=== PATIENT | female | born 1945 | race Caucasian/White ===

== ENCOUNTER → 2017-03-24 | Outpatient (CLI) | payer MEDICARE ==
--- NOTE | 2017-03-24 17:43 | MAM ---
History: Well woman exam. Date of exam: 03/24/2017 Services provided: Bilateral full field digital screening mammography. CAD, the images were reviewed with R2 computer aided detection. FINDINGS: Glandular tissue is scattered glandular contour. Comparison with 2014 study. Mammographically benign bilateral subglandular implants with extensive capsular calcification. No dominant mass, architectural distortion or clustered microcalcification. Stable retroareolar left breast nodule. IMPRESSION: Benign exam Recommendation: Routine annual mammography BIRAD CATEGORY: 2 BENIGN Electronically signed by: Mimi Diggs MD 03/24/2017 5:42 PM CDT
== END ==
LOC: MAMMO 09:58
PROVIDERS: ATTEND Family Medicine
DX: Z12.31 Encounter for screening mammogram for malignant neoplasm of breast (principal)

== ENCOUNTER → 2017-10-02 | Outpatient (CLI) | payer MEDICARE ==
--- NOTE | 2017-10-05 09:21 | MRI ---
EXAM DESCRIPTION: Lumbar Spine w/o Contrast CLINICAL HISTORY: 72 years, Female, RADICULOPATHY , right leg pain COMPARISON: FINDINGS: Sagittal and axial sequences. Bone marrow is normal signal characteristics except for degenerative-type changes. Conus terminates at L1. Mild bulge on sagittal sequences at T12-L1. Moderate right lumbar curvature centered mid and lower lumbar spine related to degenerative change. Narrowing L1-2 with bulging disc osteophyte asymmetric to the right. Facet degenerative change with narrowing right exit foramen and lateral recess. At L2-3 narrowing with about 2 mm of retrolisthesis. Bulging disc osteophyte asymmetric to the right. Moderate facet degenerative change with slight impingement left lateral recess. L3-4 diffuse bulging disc with narrowing. Mild bilateral foraminal narrowing. Facet degenerative change. Left lateral recess encroachment. L4-5 narrowing with bulging disc asymmetric to the right. Facet degenerative change. Impingement on the right lateral recess and right-sided thecal sac. Slight right foraminal narrowing. . L5-S1 narrowing with bulging disc osteophyte asymmetric to the right. Impingement on the exiting right L5 root. IMPRESSION: 1. Moderately severe disc disease throughout the lumbar spine 2. Changes most advanced at L4-5 and L5-S1. At L4-5 bulging disc osteophyte and facet degenerative change. Impingement on right lateral recess, right-sided thecal sac and right exit foramen. At L5-S1 bulging disc osteophyte asymmetric to the right with impingement on the exiting right L5. 3. Other moderately severe disc changes upper lumbar spine, as discussed above Electronically signed by: Dmitriy Sandoval MD 10/05/2017 9:20 AM [facility]
== END | disposition home or self-care (01) ==
LOC: MRI 13:03
PROVIDERS: ATTEND Family Medicine
DX: M54.16 Radiculopathy, lumbar region (principal)

== ENCOUNTER → 2018-06-15 | Outpatient (CLI) | payer MEDICARE | LOC: NC 09:01 | PROVIDERS: ATTEND Family Medicine | DX: M06.9 Rheumatoid arthritis, unspecified (principal); J40 Bronchitis, not specified as acute or chronic; F41.8 Other specified anxiety disorders; E78.00 Pure hypercholesterolemia, unspecified; M41.86 Other forms of scoliosis, lumbar region ==

== ENCOUNTER → 2018-08-30 | Outpatient (CLI) | payer MEDICARE ==
--- NOTE | 2018-08-30 14:22 | RAD ---
EXAM DESCRIPTION: Pelvis CR CLINICAL HISTORY: PAIN IN RIGHT HIP COMPARISON: None Available. TECHNIQUE: AP view only. FINDINGS: Marked deformity and flattening of the normal convexity of the right femoral head with opposing deformity and broadening of the concavity of the right acetabular facet. Loss of height of the femoral head. No fracture. Typical subchondral sclerosis and radiolucencies. Minimal narrowing of the superior medial joint space of the left hip. Minimal spurs and subchondral radiolucency in the superior lateral acetabular facet. No fracture or dislocation. Overall bone density is decreased. Multiple levels of bilateral posterior transpedicular lumbar fusion. Spondylosis and disc space loss at L5-S1. IMPRESSION: Advanced arthrosis with deformity of the femoral head and acetabulum and loss of the joint space in the right hip. Minimal narrowing of the superior medial joint space of the left hip. No acute bony abnormalities. Electronically signed by: Gera Sanchez MD 08/30/2018 2:21 PM CDT
--- NOTE | 2018-08-31 07:38 | CT ---
EXAM DESCRIPTION: Pelvis CLINICAL HISTORY: 73 years Female, OSTEARTHRITIS COMPARISON: Current plain film examination of the pelvis TECHNIQUE: This exam was performed according to our departmental dose-optimization program, which includes automated exposure control, adjustment of the mA and/or kV according to patient size and/or use of iterative reconstruction technique. Noncontrast imaging of the pelvis with MPR reformatted and VR T reformatted images FINDINGS: Prior fixation of the mid and lower lumbar spine from L2 through L5 with pedicle screws and vertical rods as well as intervertebral disc graft material is noted. Advanced bone on bone degenerative disc disease at the unfused L5-S1 level with a vacuum phenomenon is noted. A lucent defect in the left posterior superior iliac crest from previous bone graft site is noted. The left hip is minimally degenerative with a preserved joint space no fracture or dislocation or osteonecrosis is noted. Within the pelvis the bladder is normally distended. A small focal dense calcification in the right side of the atrophic uterus likely represents a degenerative uterine fibroid. The right adnexa is unremarkable. An oval 2.1 cm probable cyst in the left adnexa is suspected. In this postmenopausal patient pelvic sonography transabdominal and transvaginal recommended. Right hip is markedly abnormal with a flattened sclerotic and lytic femoral head and acetabular region with numerous subcortical cystic changes and hypertrophic spurring and/or erosions at the lateral articular margin. End-stage degenerative disease is present in the possibility of this represents old osteonecrosis should strongly be considered. There is a large area of erosion at the inferior posterior aspect of the acetabulum that is approximately 2 cm in diameter. No acute fracture is noted. The femoral neck and intertrochanteric region of the proximal femur is intact. Large inferior erosion has almost eroded through the attachment of the inferior pubic ramus with only the medial wall remaining intact. Superimposed erosive arthropathy would be a consideration. IMPRESSION: 1. End-stage osteoarthritic appearance of the right hip with collapse of the femoral head and [id number] appearance with subcortical sclerosis and marked subcortical erosive changes on both sides of the joint space with a larger approximate 2 x 2.5 cm erosion at the inferior posterior acetabulum at its junction with the inferior pubic ramus with only the medial wall of this attachment remaining in place. Possibility of old osteonecrosis or a superimposed erosive arthropathy upon the advanced degenerative changes should be considered. 2. Postoperative defect in the posterior superior left iliac crest from previous bone graft harvesting and previous internal fixation of the mid and lower lumbar spine. 3. 3.1 cm probable cystic mass left adnexa with atrophic uterus and normal right adnexa. Pelvic sonography transabdominal and transvaginal for further workup of the left adnexa recommended Electronically signed by: Ricky Ruiz MD 08/31/2018 7:36 AM CDT
== END ==
LOC: RAD 08:40
PROVIDERS: ATTEND Orthopaedic Surgery
DX: M16.11 Unilateral primary osteoarthritis, right hip (principal); M95.9 Acquired deformity of musculoskeletal system, unspecified

== ENCOUNTER → 2018-09-29 | Outpatient (CLI) | payer MEDICARE ==
--- NOTE | 2018-10-01 12:06 | MAM ---
EXAM DESCRIPTION: 3D Screening BILATERAL : Digital Mammography. CLINICAL HISTORY: 73 years Female SCREEN . No complaints. No personal or family history of breast cancer. Childbirth. Postmenopausal 18 years. Hormone replacement 5 or more years ago. Lifetime risk of developing breast cancer (Tyrer-Cuzick model)(%): 3.3. COMPARISON: 2-D digital screening bilateral mammography with Zev implant displacement technique 03/24/2017. TECHNIQUE: Bilateral CC and MLO projection full-field images, with Zev Implant Displacement digital tomosynthesis mammographic technique. Bilateral 2-D digital full-field images, MLO and CC projections, non-displaced. CAD Bilateral digital 2-D full-field MLO images. CAD not available for tomosynthesis or 2-D images. FINDINGS: The breast parenchymal density pattern is: Scattered areas of fibroglandular density. No skin thickening or nipple retraction. Left axillary lymph nodes. Abnormally dense tissue on the undersurface of the left breast implant most likely leaking implant material. Bilateral retroglandular silicone implants with partially calcified capsules. Retroareolar mass density on the left is stable. Bilateral solitary microcalcifications. No new focal, stellate mass or density, focal asymmetry , and no suspicious microcalcifications bilaterally. Stable mammograms compared to prior study. Taking into account, differences in mammographic technique. IMPRESSION: Benign exam. BIRAD CATEGORY: 2 BENIGN FINDINGS. RECOMMENDATIONS: FOLLOW UP: Routine digital bilateral mammographic screening, one year interval from September 2018. Written communication explaining the IMPRESSION and follow-up, will be mailed to the patient and referring health care provider. According to the [employer], yearly mammograms are recommended starting at age 40 and continuing as long as a woman is in good health. Any breast change noted on a breast self-exam should be reported promptly to the patient's healthcare provider. Breast MRI is recommended for women with an approximately 20-25% or greater lifetime risk of breast cancer, including women with a strong family history of breast or ovarian cancer and women who have been treated for Hodgkin's disease. A negative mammographic report should not delay tissue diagnosis in patients with significant clinical history or physical findings. Extremely dense breast tissue limits the sensitivity of digital mammography. Electronically signed by: Gera Sanchez MD 10/01/2018 12:05 PM [facility]
== END ==
LOC: MAMMO 14:00
PROVIDERS: ATTEND Family Medicine
DX: Z12.31 Encounter for screening mammogram for malignant neoplasm of breast (principal)

== ENCOUNTER → 2018-10-25 | Outpatient (CLI) | payer MEDICARE | LOC: GMAH 11:20 | PROVIDERS: ATTEND Family Medicine | DX: Z01.810 Encounter for preprocedural cardiovascular examination (principal); I51.7 Cardiomegaly; I10 Essential (primary) hypertension ==

== ENCOUNTER → 2018-11-30 | Outpatient (CLI) | payer MEDICARE | LOC: GMAH 17:07 | PROVIDERS: ATTEND Nurse Practitioner Family | DX: L03.317 Cellulitis of buttock (principal) ==

== ENCOUNTER → 2018-12-09 | Outpatient (CLI) | payer MEDICARE | LOC: BFHH 09:04 | PROVIDERS: ATTEND Family Medicine | DX: L03.115 Cellulitis of right lower limb (principal); R53.83 Other fatigue; Z51.81 Encounter for therapeutic drug level monitoring; Z79.899 Other long term (current) drug therapy ==

== ENCOUNTER → 2018-12-28 | Outpatient (CLI) | payer MEDICARE | LOC: BFHH 12:16 | PROVIDERS: ATTEND Orthopaedic Surgery | DX: T81.41XA Infection following a procedure, superficial incisional surgical site, initial encounter (principal); L03.115 Cellulitis of right lower limb; A04.72 Enterocolitis due to Clostridium difficile, not specified as recurrent ==

== ENCOUNTER → 2018-12-30 | Outpatient (CLI) | payer MEDICARE | LOC: LAB.NP 12:03 | PROVIDERS: ATTEND Orthopaedic Surgery | DX: L03.115 Cellulitis of right lower limb (principal) ==

== ENCOUNTER → 2019-01-10 | Outpatient (CLI) | payer MEDICARE | LOC: BFHH 10:22 | PROVIDERS: ATTEND Family Medicine | DX: I10 Essential (primary) hypertension (principal); T81.41XA Infection following a procedure, superficial incisional surgical site, initial encounter; Z79.2 Long term (current) use of antibiotics ==

== ENCOUNTER → 2019-01-17 | Outpatient (CLI) | payer MEDICARE | LOC: BFHH 10:18 | PROVIDERS: ATTEND Orthopaedic Surgery | DX: T81.41XA Infection following a procedure, superficial incisional surgical site, initial encounter (principal); Z45.2 Encounter for adjustment and management of vascular access device ==

== ENCOUNTER → 2019-01-31 | Outpatient (CLI) | payer MEDICARE | LOC: BFHH 10:08 | PROVIDERS: ATTEND Family Medicine | DX: T81.41XD Infection following a procedure, superficial incisional surgical site, subsequent encounter (principal); L03.115 Cellulitis of right lower limb; I10 Essential (primary) hypertension; Z79.2 Long term (current) use of antibiotics ==

== ENCOUNTER → 2019-02-15 | Outpatient (CLI) | payer MEDICARE | LOC: BFHH 10:11 | PROVIDERS: ATTEND Orthopaedic Surgery | DX: T81.41XA Infection following a procedure, superficial incisional surgical site, initial encounter (principal); I10 Essential (primary) hypertension ==

== ENCOUNTER → 2019-03-16 | Outpatient (CLI) | payer MEDICARE | LOC: BFHH 09:56 | PROVIDERS: ATTEND Orthopaedic Surgery | DX: T84.51XA Infection and inflammatory reaction due to internal right hip prosthesis, initial encounter (principal); I10 Essential (primary) hypertension; L03.317 Cellulitis of buttock; J45.909 Unspecified asthma, uncomplicated ==

== ENCOUNTER → 2019-04-05 | Outpatient (CLI) | payer MEDICARE | LOC: LAB.O 12:21 | PROVIDERS: ATTEND Orthopaedic Surgery | DX: T84.9XXA Unspecified complication of internal orthopedic prosthetic device, implant and graft, initial encounter (principal); M25.551 Pain in right hip; Z96.649 Presence of unspecified artificial hip joint; Z47.1 Aftercare following joint replacement surgery ==

== ENCOUNTER 2019-08-29 05:13 | Day surgery (SDC) | payer MEDICARE ==
[2019-08-29] MEDS ORDERED: TROP 1%/CYCLOPEN 1%/PHENYL 2% DROPS ONE (08:51)
[2019-08-29] MEDS ORDERED: PROPARACAINE 0.5% OPHTH SOL 15 ML BTTL ONE (08:51)
[2019-08-29] MEDS ORDERED: MIDAZOLAM INJ 2 MG/2 ML VIAL ONE (11:12)
[2019-08-29] MEDS ORDERED: PROPARACAINE 0.5% OPHTH SOL 15 ML BTTL LEFT_EYE ONE (11:13)
[2019-08-29] MEDS ORDERED: LIDOCAINE 1% MPF 2 ML VIAL INJ ONE (11:22)
[2019-08-29] MEDS ORDERED: MOXIFLOXACIN HCL (OPHTH) 1 DROP DROPS LEFT_EYE ONE ×2 (11:23→11:35)
[2019-08-29] MEDS ORDERED: TOBRAMYCIN SULF 0.3 % OPHT SOL 1 DROP LEFT_EYE ONE ×2 (11:23→11:37)
[2019-08-29] MEDS ORDERED: BRIMONIDINE 0.2% OPHTH DROPS LEFT_EYE ONE ×2 (11:23→11:37)
[2019-08-29] MEDS ORDERED: DEXAMETHASONE 0.1% OPHTH SOL 1 DROP LEFT_EYE ONE ×2 (11:23→11:36)
== END 2019-08-29 12:20 | disposition home or self-care (01) ==
LOC: AMB 05:13
PROVIDERS: ATTEND Ophthalmology
DX: H25.12 Age-related nuclear cataract, left eye (principal); I10 Essential (primary) hypertension; Z88.5 Allergy status to narcotic agent
CPT/HCPCS: 00142; 66984; J2250

== ENCOUNTER 2019-09-12 05:36 | Day surgery (SDC) | payer MEDICARE ==
[2019-09-12] MEDS ORDERED: MOXIFLOXACIN HCL (OPHTH) 1 DROP DROPS ONE (05:54)
[2019-09-12] MEDS ORDERED: PROPARACAINE 0.5% OPHTH SOL 15 ML BTTL ONE (05:54)
[2019-09-12] MEDS ORDERED: TROP 1%/CYCLOPEN 1%/PHENYL 2% DROPS ONE (05:54)
[2019-09-12] MEDS ORDERED: MIDAZOLAM INJ 2 MG/2 ML VIAL ONE (09:47)
[2019-09-12] MEDS ORDERED: PROPARACAINE 0.5% OPHTH SOL 15 ML BTTL RIGHT_EYE ONE (09:47)
[2019-09-12] MEDS ORDERED: LIDOCAINE 1% 2 ML VIAL INJ ONE (09:54)
[2019-09-12] MEDS ORDERED: TOBRAMYCIN SULF 0.3 % OPHT SOL 1 DROP RIGHT_EYE ONE ×2 (09:58→10:04)
[2019-09-12] MEDS ORDERED: MOXIFLOXACIN HCL (OPHTH) 1 DROP DROPS RIGHT_EYE ONE ×2 (09:58→10:03)
[2019-09-12] MEDS ORDERED: DEXAMETHASONE 0.1% OPHTH SOL 1 DROP RIGHT_EYE ONE ×2 (09:58→10:04)
[2019-09-12] MEDS ORDERED: BRIMONIDINE 0.2% OPHTH DROPS RIGHT_EYE ONE ×2 (09:58→10:04)
== END 2019-09-12 10:53 | disposition home or self-care (01) ==
LOC: AMB 05:36
PROVIDERS: ATTEND Ophthalmology
DX: H25.11 Age-related nuclear cataract, right eye (principal); I10 Essential (primary) hypertension
CPT/HCPCS: 00142; 66984; J2250

== ENCOUNTER → 2019-09-26 | Outpatient (CLI) | payer MEDICARE ==
--- NOTE | 2019-09-26 11:36 | RAD ---
Single frontal view pelvis Indication: HIP PAIN LEFT Comparison: August 30, 2018 Impression: Right total hip arthroplasty noted and new compared to prior. Indeterminate 18 mm ossification along the lateral margin of the acetabular cup. Mild to moderate left osteoarthritis with joint space narrowing and osteophyte formation. No acute fracture of the pelvis identified. Evaluation for fracture is limited given the degree of osteopenia. If high clinical concern for acute fracture, correlation with MRI recommended given its greater sensitivity in the osteopenic patient. If the patient cannot tolerate MRI imaging or more urgent imaging is required, CT could be performed, however it is less sensitive in the osteopenic patient when compared to MRI. Lower lumbar fusion construct partially visualized. Osteopenia. If this is a new finding, DEXA scan recommended as well as evaluation for possible osteoporosis treatment. Electronically signed by: Nato Parks MD 09/26/2019 11:35 AM [facility]
--- NOTE | 2019-09-26 11:37 | RAD ---
4 radiographs left knee Indication: PAIN IN LEFT KNEE Comparison: None Impression: Moderate to severe osteoarthritis lateral knee compartment with moderate changes medial and patellofemoral compartments. No acute fracture. Moderate size knee effusion. Osteopenia. If this is a new finding, DEXA scan recommended as well as evaluation for possible osteoporosis treatment. Electronically signed by: Nato Parks MD 09/26/2019 11:35 AM [facility]
== END ==
LOC: RAD 09:55
PROVIDERS: ATTEND Orthopaedic Surgery
DX: M17.12 Unilateral primary osteoarthritis, left knee (principal); M85.862 Other specified disorders of bone density and structure, left lower leg; M85.852 Other specified disorders of bone density and structure, left thigh; M16.12 Unilateral primary osteoarthritis, left hip; M25.751 Osteophyte, right hip; Z98.1 Arthrodesis status; Z96.641 Presence of right artificial hip joint

== ENCOUNTER → 2019-10-27 | Outpatient (CLI) | payer MEDICARE ==
--- NOTE | 2019-10-27 16:00 | RAD ---
EXAM DESCRIPTION: Pelvis CLINICAL HISTORY: 74 years Female, Hip pain COMPARISON: September 26, 2019. TECHNIQUE: AP radiograph of the pelvis was performed. FINDINGS: Mild diffuse osteopenia of the visualized bones noted. Stable appearing post surgical changes of right total hip arthroplasty with intact hardware. No evidence of loosening or hardware failure. The pelvic ring is grossly intact. Moderate left hip joint osteoarthritic changes noted. IMPRESSION: Single AP radiograph of the pelvis demonstrates grossly intact pelvic ring with stable right total hip arthroplasty changes. Electronically signed by: Trav Mcmillan MD 10/27/2019 3:58 PM [facility]
--- NOTE | 2019-10-27 16:02 | RAD ---
EXAM DESCRIPTION: Hip,Right 2 Views CLINICAL HISTORY: 74 years Female, Hip pain COMPARISON: September 26, 2019. TECHNIQUE: AP and lateral radiographs of the right hip. FINDINGS: Mild diffuse osteopenia of the visualized bones noted. Right total hip arthroplasty changes with intact hardware. No acute fracture or dislocation. No evidence of loosening or hardware failure noted. The overlying soft tissues appear grossly unremarkable. IMPRESSION: 1. No acute fracture or dislocation. 2. Right total hip arthroplasty changes with intact hardware. Electronically signed by: Trav Mcmillan MD 10/27/2019 4:00 PM [facility]
== END ==
LOC: RAD 10:00
PROVIDERS: ATTEND Orthopaedic Surgery
DX: M25.551 Pain in right hip (principal); Z96.641 Presence of right artificial hip joint

== ENCOUNTER → 2019-12-12 | Outpatient (CLI) | payer MEDICARE ==
--- NOTE | 2019-12-14 15:38 | MAM ---
EXAM DESCRIPTION: 3D Screening BILATERAL : Digital Mammography. CLINICAL HISTORY: 74 years Female ANNUAL SCREENING . No complaints. No personal or family history of breast cancer. Childbirth age 21. Menarche age 15. Menopause age 49. HRT 5 or more years ago. Bilateral breast augmentation. . COMPARISON: Bilateral screening digital breast tomosynthesis with Zev implant displacement views September 2018. 2-D digital screening bilateral mammography with Zev views March 2017. TECHNIQUE: Bilateral CC and MLO projection full-field images, with Zev Implant Displacement digital tomosynthesis mammographic technique. Bilateral 2-D digital full-field images, MLO and CC projections, non-displaced. Bilateral digital 2-D full-field MLO images. Implant displaced. CAD available for 2-D images. Technically difficult study due to decreased size of breast tissue bilaterally. FINDINGS: The breast parenchymal density pattern is: Scattered areas of fibroglandular density. No skin thickening or nipple retraction. Stable retroareolar density, probably lymph node left breast. Bilateral retroglandular silicone implants with extensive capsular calcification. No new focal, stellate mass or density, focal asymmetry , and no suspicious microcalcifications bilaterally. Stable mammograms compared to prior study. IMPRESSION: Benign exam. BIRAD CATEGORY: 2 BENIGN FINDINGS. RECOMMENDATIONS: FOLLOW UP: Routine digital bilateral mammographic screening, one year interval from November 2019. Written communication explaining the IMPRESSION and follow-up, will be mailed to the patient and referring health care provider. According to the [employer], yearly mammograms are recommended starting at age 40 and continuing as long as a woman is in good health. Any breast change noted on a breast self-exam should be reported promptly to the patient's healthcare provider. Breast MRI is recommended for women with an approximately 20-25% or greater lifetime risk of breast cancer, including women with a strong family history of breast or ovarian cancer and women who have been treated for Hodgkin's disease. A negative mammographic report should not delay tissue diagnosis in patients with significant clinical history or physical findings. Extremely dense breast tissue limits the sensitivity of digital mammography. Electronically signed by: Gera Sanchez MD 12/14/2019 3:36 PM [employer]
== END ==
LOC: MAMMO 11:44
PROVIDERS: ATTEND Family Medicine
DX: Z12.31 Encounter for screening mammogram for malignant neoplasm of breast (principal)